=== PATIENT | male | born 1980 | race Caucasian/White ===

== ENCOUNTER 2017-02-05 19:06 | Emergency (ER) | payer OTHER ==
[~2017-02-05] VITALS: Ht 177.8 cm; Wt 115.0 kg
[2017-02-05 19:30] VITALS: BP 136/78; PULSE 67; RESP 18; TEMP 98.2; O2SAT 99
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
[2017-02-05] MEDS ORDERED: IBUP800T23 PO (20:35)
[2017-02-05] MEDS ORDERED: TRAM50TA PO (20:35)
== END 2017-02-05 21:02 | disposition home or self-care (01) ==
LOC: PHEFT 19:06
DX: M79.604 Pain in right leg (principal); M25.561 Pain in right knee; W16.712A Jumping or diving from boat striking water surface causing other injury, initial encounter; Y93.89 Activity, other specified; Y92.814 Boat as the place of occurrence of the external cause
CPT/HCPCS: 73560; 73564; 73590; 73610; 99283; E0113